=== PATIENT | female | born 1990 | race Caucasian/White ===

== ENCOUNTER 2022-01-25 07:23 | Emergency (ER) | payer SELFPAY ==
[2022-01-25] MEDS ORDERED: SODIUM CHLORIDE 0.9% 1000 ML 1,000 ML IV ONE ×2 (07:43→09:06)
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
[2022-01-25] MEDS ORDERED: LORazepam 2 MG/ML VIAL IV ONE (08:14)
--- NOTE | 2022-01-25 08:14 | Emergency Department Report ---
ED General Adult HPI - General Chief complaint: Chest Pain Stated complaint: HEART RATE/COUGHING MUCAS Time Seen by Provider: 01/25/22 07:55 Source: patient Mode of arrival: Ambulatory Limitations: No Limitations - History of Present Illness Initial comments: Patient is 31 years old female with history of PTSD and anxiety. Patient presented to the ER complaining of cough, congestion, chest pain, heart racing for the last 2 to 3 days. Patient stated that she had fever and chills also. Patient stated that she has been taking NyQuil and Tylenol 3. She is very anxious however she denied any suicidal homicidal ideation. No visual or auditory hallucination. Patient found to be tachycardic with a heart rate of 140 and a blood pressure of 186/106. -: days(s) Severity scale (0 -10): 0 - Related Data Previous Rx's Medication Instructions Recorded Last Taken Type Potassium Chloride [K-Dur] 20 meq PO QDAY #7 01/25/22 Unknown Rx Allergies Allergy/AdvReac Type Severity Reaction Status Date / Time tramadol Allergy Swelling Verified 01/25/22 07:31 ED Review of Systems ROS: Stated complaint: HEART RATE/COUGHING MUCAS Other details as noted in HPI Comment: All other systems reviewed and negative Constitutional: chills Respiratory: cough, shortness of breath, SOB at rest. denies: orthopnea, SOB with exertion, wheezing Cardiovascular: palpitations. denies: chest pain Gastrointestinal: denies: abdominal pain, nausea, vomiting Musculoskeletal: denies: back pain Neurological: denies: headache, weakness, numbness, paresthesias, confusion Psychiatric: anxiety. denies: depression, auditory hallucinations, visual hallucinations, homicidal thoughts, suicidal thoughts ED Past Medical Hx - Past Medical History Previous Medical History?: No - Surgical History Additional Surgical History: C SECTION - Medications Home Medications: Home Medications Medication Instructions Recorded Confirmed Last Taken Type Potassium Chloride [K-Dur] 20 meq PO QDAY #7 01/25/22 Unknown Rx ED Physical Exam - General Limitations: No Limitations General appearance: alert, in no apparent distress, anxious - Head Head exam: Present: atraumatic, normocephalic, normal inspection - Eye Eye exam: Present: normal appearance - ENT ENT exam: Present: normal exam, normal orophraynx, mucous membranes moist - Neck Neck exam: Present: normal inspection, full ROM. Absent: tenderness, me ningismus - Respiratory Respiratory exam: Present: normal lung sounds bilaterally - Cardiovascular Cardiovascular Exam: Present: regular rate, normal rhythm, normal heart sounds - GI/Abdominal GI/Abdominal exam: Present: soft, normal bowel sounds. Absent: distended, tenderness, guarding, rebound, rigid, organomegaly, mass, bruit, pulsatile mass, hernia - Extremities Exam Extremities exam: Present: normal inspection, full ROM, normal capillary refill. Absent: tenderness, pedal edema, joint swelling, calf tenderness - Back Exam Back exam: Present: normal inspection, full ROM. Absent: CVA tenderness (R), CVA tenderness (L) - Neurological Exam Neurological exam: Present: alert, oriented X3, CN II-XII intact, normal gait, reflexes normal. Absent: motor sensory deficit - Psychiatric Psychiatric exam: Present: anxious. Absent: homicidal ideation, suicidal ideation - Skin Skin exam: Present: warm, intact, normal color ED Course Vital Signs 01/25/22 01/25/22 01/25/22 07:35 07:46 08:05 Temperature 98.4 F Pulse Rate 140 H Respiratory 24 Rate Blood Pressure 160/105 Blood Pressure 187/109 [Right] O2 Sat by Pulse 100 100 98 Oximetry 01/25/22 01/25/22 01/25/22 08:15 08:31 08:53 Temperature Pulse Rate 112 H 104 H Respiratory 23 13 Rate Blood Pressure 160/105 160/105 160/105 Blood Pressure [Right] O2 Sat by Pulse 98 97 73 L Oximetry 01/25/22 01/25/22 09:01 09:15 Temperature Pulse Rate 110 H 104 H Respiratory 16 13 Rate Blood Pressure 166/125 166/125 Blood Pressure [Right] O2 Sat by Pulse 98 100 Oximetry ED Medical Decision Making - Lab Data Result diagrams: 01/25/22 08:03 01/25/22 08:03 - EKG Data -: EKG Interpreted by Dc EKG shows normal: sinus rhythm Rate: tachycardia - EKG Data Interpretation: no acute changes - Radiology Data Radiology results: report reviewed - Medical Decision Making Patient is 31 years old female with history of PTSD and anxiety. Patient presented to the ER complaining of cough, congestion, chest pain, heart racing f or the last 2 to 3 days. Patient stated that she had fever and chills also. Patient stated that she has been taking NyQuil and Tylenol 3. She is very anxious however she denied any suicidal homicidal ideation. No visual or auditory hallucination. Patient found to be tachycardic with a heart rate of 140 and a blood pressure of 186/106. Patient received normal saline. Patient refused Ativan. Patient is anxious but no evidence of acute psychosis. Patient is not suicidal or homicidal. Patient is alert, oriented x3 in no acute distress and able to make sound decision. Patient found to have a potassium of 2.7 and a lactic of 2.2. Chest x-ray is unremarkable. Patient stated that she wanted to leave AGAINST MEDICAL ADVICE because she has a court appointment today and she have to leave. Again patient is alert, oriented x3 and able to make sound decision. I discussed with the patient the dangers of leaving without treatment and that can lead to permanent disability or . Patient understood and advised her to come back to the ER as soon as possible and to follow-up with her primary care physician as soon as possible. Critical Care Time: Yes Critical care time in (mins) excluding proc time.: 35 Critical care attestation.: If time is entered above; I have spent that time in minutes in the direct care of this critically ill patient, excluding procedure time. ED Disposition Clinical Impression: Acute hypokalemia, Lactic acidosis, Upper respiratory infection, Rhabdomyolysis Disposition: 07 LEFT AGAINST MEDICAL ADVICE Is pt being admited?: No Condition: Stable Instructions: Upper Respiratory Infection, Adult, Hypokalemia Prescriptions: Potassium Chloride [K-Dur] 20 meq PO QDAY #7 Referrals: DONTE HALL MD [Staff Physician] - [facility]
[2022-01-25 08:20] LABS: Eosinophils % (Auto) 0.2 % (0.0-4.3); Monocytes # (Auto) 0.5 K/mm3 (0.0-0.8)
[2022-01-25 08:28] LABS: Basophils % (Auto) 0.4 % (0.0-1.8); Hematocrit 32.9 % (30.3-42.9); Hemoglobin 11.3 gm/dl (10.1-14.3); Lymphocytes # (Auto) 1.2 K/mm3 (1.2-5.4); Lymphocytes % (Auto) 14.9 % (13.4-35.0); Mean Corpuscular HGB Conc 35 % (30-34); Mean Corpuscular Volume 75 fl (79-97); Platelet Count 326 K/mm3 (140-440); Red Blood Count 4.36 M/mm3 (3.65-5.03); Red Cell Distribution Width 22.4 % (13.2-15.2)
[2022-01-25 08:33] LABS: Mucus,Urine FEW /HPF
[2022-01-25 08:43] LABS: Bilirubin,Urine Negative (Negative); Color,Urine Yellow (Yellow)
[2022-01-25 08:44] LABS: Blood,Urine Negative (Negative)
[2022-01-25 08:52] LABS: Amphetamine Screen,Urine Negative; Benzodiazepines Screen,Urine Negative; Cannabinoid Screen,Urine Negative; Cocaine Screen,Urine Negative; Methadone Screen,Urine Negative; Opiate Screen,Urine Negative
[2022-01-25 08:54] LABS: Alanine Aminotransferase 34 units/L (7-56); Albumin 4.3 g/dL (3.9-5); BUN/Creatinine Ratio 5; Blood Urea Nitrogen 4 mg/dL (7-17); Calcium 9.2 mg/dL (8.4-10.2); Hemolysis Index 1
[2022-01-25 09:03] LABS: Free T4 (Free Thyroxine) 1.38 ng/dL (0.76-1.46)
[2022-01-25] MEDS ORDERED: POTASSIUM CHLORIDE ER 20 MEQ TAB PO ONE (09:12)
--- NOTE | 2022-01-25 09:17 | XRay Report ---
CHEST 2 VIEWS INDICATION: cough. COMPARISON: none FINDINGS: Support devices: None. Heart: Within normal limits. Lungs/pleura: No acute air space or interstitial disease. No pneumothorax. Additional findings: None. IMPRESSION: Unremarkable chest films. Signer Name: Piero Fernandez Jr, MD Signed: 01/25/2022 9:13 AM Workstation Name: [id number]
[2022-01-25 09:21] VITALS: BP 166/125
[2022-01-25] MEDS ORDERED: POTASSIUM CHLORIDE 10 MEQ 10 MEQ/100 ML BAG IV SCH (10:00)
== END 2022-01-25 10:15 | disposition left against medical advice (07) ==
LOC: ED 07:23
DX: E87.6 Hypokalemia (principal); E87.2 Acidosis; J06.9 Acute upper respiratory infection, unspecified; M62.82 Rhabdomyolysis; Z98.890 Other specified postprocedural states; Z88.5 Allergy status to narcotic agent
CPT/HCPCS: 36415; 71046; 80053; 80307; 81001; 82140; 82550; 84439; 84443; 84484; 84703; 85025; 96360; 96361; 99284; J3480; J7030; 80320; Q0162; G0480; J2060